=== PATIENT | female | born 1980 | race Caucasian/White ===

== ENCOUNTER → 2016-06-14 | Outpatient (REF) | payer MEDICARE, OTHER ==
[~2016-06-14] MED LIST: CALC500T49 PO; CLAR1TAB2 PO; CLEO300C2 PO; CYMB60CA3 PO; DRIS50002 PO; OXYC1TAB23 PO; OXYC20TA21 PO; VITA-112 PO; VITA500C10 PO
== END ==
LOC: M SFHCPLAZ 13:59
PROVIDERS: ATTEND Nurse Practitioner Family
DX: L03.115 Cellulitis of right lower limb (principal)
CPT/HCPCS: 87070; 87077; 87186; G0463

== ENCOUNTER → 2016-06-15 | Outpatient (REF) | payer MEDICARE, OTHER ==
[2016-06-15 14:54] LABS: BASO % 0.3 % (0.0-1.0); EOS # 0.2 K/mm3 (0.0-0.50); EOS % 1.8 % (0.0-3.0); LARGE UNSTAINED CELL # 0.2 K/mm3 (0.0-0.4); LARGE UNSTAINED CELL % 2.1 % (0.0-4.0); LYMPH # 2.5 K/mm3 (1.5-4.5); LYMPH % 26.4 % (24.0-44.0); MEAN CORPUSCULAR HEMOGLOBIN 31.8 pg (27.0-33.0); MEAN CORPUSCULAR HGB CONC 33.6 g/dl (32.0-36.5); MEAN CORPUSCULAR VOLUME 94.8 fl (80.0-96.0); MONO # 0.4 K/mm3 (0.0-0.8); NEUTROPHILS # 6.1 K/mm3 (1.8-7.7); NEUTROPHILS % 65.3 % (36.0-66.0); PLATELET COUNT, AUTOMATED 150 k/mm3 (150-450); RED CELL DISTRIBUTION WIDTH 12.5 % (11.5-14.5); WHITE BLOOD COUNT 9.3 K/mm3 (4.0-10.0)
[2016-06-15 14:57] LABS: ANION GAP 5 MEQ/L (8-16); BLOOD UREA NITROGEN 13 MG/DL (7-18); CARBON DIOXIDE LEVEL 29 MEQ/L (21-32); CHLORIDE LEVEL 106 MEQ/L (98-107); CREATININE FOR GFR 0.65 MG/DL (0.55-1.02); GLOMERULAR FILTRATION RATE > 60.0 (>60); GLUCOSE, FASTING 88 MG/DL (70-105); POTASSIUM SERUM 4.2 MEQ/L (3.5-5.1); SODIUM LEVEL 140 MEQ/L (136-145)
== END ==
LOC: M SFHCPLAZ 14:39
PROVIDERS: ATTEND Nurse Practitioner Family
DX: L03.115 Cellulitis of right lower limb (principal)

== ENCOUNTER → 2016-07-14 | Outpatient (REF) | payer MEDICARE, OTHER | LOC: M LABDRAWP 11:18 | PROVIDERS: ATTEND Nurse Practitioner Family | DX: R35.0 Frequency of micturition (principal) | CPT/HCPCS: 81002; 87086; G0463 ==

== ENCOUNTER → 2016-08-01 | Outpatient (REF) | payer MEDICARE, OTHER ==
[2016-08-01 15:46] LABS: BASO # 0.1 K/mm3 (0.0-0.2); BASO % 0.4 % (0.0-1.0); EOS # 0.1 K/mm3 (0.0-0.50); EOS % 0.9 % (0.0-3.0); LARGE UNSTAINED CELL # 0.3 K/mm3 (0.0-0.4); LARGE UNSTAINED CELL % 1.7 % (0.0-4.0); LYMPH # 5.6 K/mm3 (1.5-4.5); LYMPH % 34.1 % (24.0-44.0); MEAN CORPUSCULAR HEMOGLOBIN 32.2 pg (27.0-33.0); MEAN CORPUSCULAR HGB CONC 32.9 g/dl (32.0-36.5); MEAN CORPUSCULAR VOLUME 97.8 fl (80.0-96.0); MONO % 6.4 % (0.0-5.0); NEUTROPHILS # 8.8 K/mm3 (1.8-7.7); NEUTROPHILS % 56.5 % (36.0-66.0); PLATELET COUNT, AUTOMATED 213 k/mm3 (150-450); RED CELL DISTRIBUTION WIDTH 12.7 % (11.5-14.5)
[2016-08-01 15:48] LABS: WHITE BLOOD COUNT 15.5 K/mm3 (4.0-10.0)
[2016-08-01 16:09] LABS: ERYTHROCYTE SEDIMENTATION RATE 1 mm/hr (0-20)
[2016-08-01 16:44] LABS: ALBUMIN 3.7 GM/DL (3.2-5.2); ALBUMIN/GLOBULIN RATIO 1.48 (1.00-1.93); ALKALINE PHOSPHATASE 64 U/L (45-117); ALT/SGPT 24 U/L (12-78); ANION GAP 7 MEQ/L (8-16); AST/SGOT 9 U/L (15-37); BILIRUBIN,TOTAL 0.2 MG/DL (0.2-1.0); BLOOD UREA NITROGEN 11 MG/DL (7-18); CALCIUM LEVEL 8.5 MG/DL (8.5-10.1); CARBON DIOXIDE LEVEL 30 MEQ/L (21-32); CHLORIDE LEVEL 102 MEQ/L (98-107); CREATININE FOR GFR 0.65 MG/DL (0.55-1.02); FREE T4 0.95 NG/DL (0.76-1.46); GLOMERULAR FILTRATION RATE > 60.0 (>60); GLUCOSE, FASTING 73 MG/DL (70-105); POTASSIUM SERUM 3.7 MEQ/L (3.5-5.1); SODIUM LEVEL 139 MEQ/L (136-145); TOTAL PROTEIN 6.2 GM/DL (6.4-8.2)
[2016-08-01 18:41] LABS: REASON FOR REVIEW ABSOLUTE LYMPH >5.0
== END ==
LOC: M SFHCPLAZ 11:39
PROVIDERS: ATTEND Nurse Practitioner Family
DX: L29.9 Pruritus, unspecified (principal)
CPT/HCPCS: 36415; 80053; 84439; 84443; 85025; 85652; G0463

== ENCOUNTER → 2016-09-07 | Outpatient (REF) | payer MEDICARE, OTHER ==
[2016-09-07 14:06] LABS: BASO % 0.4 % (0.0-1.0); EOS # 0.2 K/mm3 (0.0-0.50); EOS % 2.1 % (0.0-3.0); LARGE UNSTAINED CELL # 0.2 K/mm3 (0.0-0.4); LARGE UNSTAINED CELL % 1.9 % (0.0-4.0); LYMPH # 2.4 K/mm3 (1.5-4.5); LYMPH % 27.2 % (24.0-44.0); MEAN CORPUSCULAR HEMOGLOBIN 33.3 pg (27.0-33.0); MEAN CORPUSCULAR HGB CONC 34.9 g/dl (32.0-36.5); MEAN CORPUSCULAR VOLUME 95.5 fl (80.0-96.0); MONO # 0.5 K/mm3 (0.0-0.8); MONO % 5.7 % (0.0-5.0); NEUTROPHILS # 5.6 K/mm3 (1.8-7.7); NEUTROPHILS % 62.6 % (36.0-66.0); PLATELET COUNT, AUTOMATED 173 k/mm3 (150-450); RED CELL DISTRIBUTION WIDTH 12.6 % (11.5-14.5); WHITE BLOOD COUNT 8.9 K/mm3 (4.0-10.0)
[2016-09-07 14:16] LABS: FREE T4 0.94 NG/DL (0.76-1.46)
== END ==
LOC: M SFHCPLAZ 11:15
PROVIDERS: ATTEND Nurse Practitioner Family
DX: D72.820 Lymphocytosis (symptomatic) (principal); E03.9 Hypothyroidism, unspecified

== ENCOUNTER → 2016-10-03 | Outpatient (REF) | payer MEDICARE, OTHER | LOC: M SFHCPLAZ 16:57 | PROVIDERS: ATTEND Nurse Practitioner Family | DX: R30.0 Dysuria (principal) | CPT/HCPCS: 87088; 87186; G0463 ==

== ENCOUNTER 2016-12-30 15:42 | Emergency (ER) | payer MEDICARE, OTHER ==
[~2016-12-30] VITALS: Ht 165.1 cm; Wt 67.3 kg
[~2016-12-30 15:42] MED LIST changes: -OXYC20TA21 PO; +OXYC20TA40 PO
[2016-12-30 16:44] LABS: CONTROL LINE UCG INT CTR LINE PRESENT
[2016-12-30] MEDS ORDERED: PYRI1TAB5 PO (17:21)
[2016-12-30] MEDS ORDERED: CIPR-249 PO (17:21)
[2016-12-30 17:23] VITALS: BP 140/71
== END 2016-12-30 17:32 | disposition home or self-care (01) ==
LOC: M ED 15:42
DX: N39.0 Urinary tract infection, site not specified (principal); Z79.899 Other long term (current) drug therapy; Z88.2 Allergy status to sulfonamides

== ENCOUNTER 2019-04-11 16:41 | Emergency (ER) | payer MEDICARE, OTHER ==
[~2019-04-11] VITALS: Ht 165.1 cm; Wt 71.2 kg
[~2019-04-11 16:41] MED LIST changes: +CIPR-249 PO; -DRIS50002 PO; +DRIS50003 PO; +PYRI1TAB5 PO
[2019-04-11 16:42] VITALS: BP 167/90
[2019-04-11] MEDS ORDERED: CLEO300C2 PO (17:18)
[2019-04-11] MEDS ORDERED: CLINDAMYCIN 150 MG CAP PO ONE (17:30)
== END 2019-04-11 17:35 | disposition home or self-care (01) ==
LOC: M ED 16:41
DX: M70.41 Prepatellar bursitis, right knee (principal); Z86.19 Personal history of other infectious and parasitic diseases; F33.9 Major depressive disorder, recurrent, unspecified; Z79.891 Long term (current) use of opiate analgesic; Z79.899 Other long term (current) drug therapy; Z88.2 Allergy status to sulfonamides; Z88.8 Allergy status to other drugs, medicaments and biological substances

== ENCOUNTER 2020-05-25 14:16 | Inpatient (IN) | payer MEDICARE, OTHER ==
[~2020-05-25] VITALS: Ht 165.1 cm; Wt 67.7 kg
--- OUTSIDE RECORDS SUMMARY | 2020-05-25 14:24 | CCD ---
Author Author [facility] Organization [facility] Address Unknown Phone Unavailable Support Name Relationship Address Phone TOPSWTN Next Of Kin [address] [place] [address] GREGBABITA Next Of Kin [address] [place] [address] DISABLED Next Of Kin [address] [place] [address] BABITA ANGELA Next Of Kin [address] [place] [address] Shar CHÁVEZ Next Of Kin [address] [place] [address] Re-disclosure Warning The records that you are about to access may contain information from federally-assisted alcohol or drug abuse programs. If such information is present, then the following federally mandated warning applies: This information has been disclosed to you from records protected by federal confidentiality rules (42 CFR part 2). The federal rules prohibit you from making any further disclosure of this information unless further disclosure is expressly permitted by the written consent of the person to whom it pertains or as otherwise permitted by 42 CFR part 2. A general authorization for the release of medical or other information is NOT sufficient for this purpose. The Federal rules restrict any use of the information to criminally investigate or prosecute any alcohol or drug abuse patient.The records that you are about to access may contain highly sensitive health information, the redisclosure of which is protected by Article 27-F of the [place] State Public Health law. If you continue you may have access to information: Regarding HIV / AIDS; Provided by facilities licensed or operated by the [facility] Office of Mental Health; or Provided by the [facility] Office for People With Developmental Disabilities. If such information is present, then the following [facility] mandated warning applies: This information has been disclosed to you from confidential records which are protected by state law. State law prohibits you from making any further disclosure of this information without the specific written consent of the person to whom it pertains, or as otherwise permitted by law. Any unauthorized further disclosure in violation of state law may result in a fine or penitentiary sentence or both. A general authorization for the release of medical or other information is NOT sufficient authorization for further disc losure. Family History Family Member Name Family Member Gender Family Member Status Date o f Status Description Data Source(s) Unknown Unknown Problem MEDENT ([facility]) father Unknown Male Problem MEDENT ([facility]) Unknown Female Problem MEDENT ([facility]) Unknown Unknown Medications Medication Brand Name Start Date Product Form Dose Route Admi nistrative Instructions Pharmacy Instructions Status Indications Reaction Description Data Source(s) 500 mg 05/23/2020 12:00:00 AM EST tablet 40 TAKE ONE TABLET BY MOUTH FOUR TIMES A DAY FOR 10 DAYS TAKE ONE TABLET BY MOUTH FOUR TIMES A DAY FOR 10 DAYS SOLD: 05/23/2020 [facility] 0.12 % 05/23/2020 12:00:00 AM EST mouthwash 473 RINSE WITH 15ML THREE TIMES A DAY FOR 7 DAYS ; SWISH, GARGLE AND AND SPIT OUT RINSE WITH 15ML THREE TIMES A DAY FOR 7 DAYS ; SWISH, GARGLE AND AND SPIT OUT SOLD: 05/23/2020 [facility] 4 mg 05/23/2020 12:00:00 AM EST capsule 14 TAKE ONE CAPSULE BY MOUTH EVERY DAY FOR 14 DAYS TAKE ONE CAPSULE BY MOUTH EVERY DAY FOR 14 DAYS SOLD: 05/23/2020 [facility] 500 mg 05/23/2020 12:00:00 AM EST tablet 20 TAKE ONE TABLET BY MOUTH EVERY 12 HOURS FOR 10 DAYS TAKE ONE TABLET BY MOUTH EVERY 12 HOURS FOR 10 DAYS SO LD: 05/23/2020 [facility] 20 mg 03/23/2020 12:00:00 AM EST tablet 10 TAKE TWO TABLETS BY MOUTH EVERY MORNING FOR 5 DAYS TAKE TWO TABLETS BY MOUTH EVERY MORNING FOR 5 DAYS GERARD [facility] 90 mcg/actuation 03/23/2020 12:00:00 AM EST HFA aerosol inha ler 8 INHALE 1-2 PUFFS BY MOUTH EVERY 4 HOURS NEEDED WHEEZING INHALE 1-2 PUFFS BY MOUTH EVERY 4 HOURS NEEDED WHEEZING SOLD: 03/23/2020 [facility] 500 mg 03/23/2020 12:00:00 AM EST tablet 5 TAKE ONE TABLET BY MOUTH EVERY DAY FOR 5 DAYS TAKE ONE TABLET BY MOUTH EVERY DAY FOR 5 DAYS SOLD: 03/23/2020 [facility] 1.1 % 02/11/2020 12:00:00 AM EDT cream 51 BRUSH TWO TIMES A DAY BRUSH TWO TIMES A DAY SOLD: 02/14/2020 [facility] 150 mg 07/09/2019 12:00:00 AM EST tablet 1 TAKE 1 TABLET BY MOUTH ONCE DAILY TAKE 1 TABLET BY MOUTH ONCE DAILY SOLD: 07/09/2019 [facility] 250 mg 07/09/2019 12:00:00 AM EST tablet 6 TAKE TWO TABLETS BY MOUTH AT ONCE ON THE FIRST DAY THEN TAKE ONE DAILY THEREAFTER TAKE TWO TABLETS BY MOUTH AT ONCE ON THE FIRST DAY THEN TAKE ONE DAILY THEREAFTER SOLD: 07/09/2019 [facility] 20 mg 07/09/2019 12:00:00 AM EST tablet 10 TAKE TWO TABLETS BY MOUTH EVERY MORNING FOR 5 DAYS TAKE TWO TABLETS BY MOUTH EVERY MORNING FOR 5 DAYS GERARD [facility] 300 mg 04/11/2019 12:00:00 AM EST capsule 30 TAKE ONE CAPSULE BY MOUTH THREE TIMES A DAY FOR 10 DAYS TAKE ONE CAPSULE BY MOUTH THREE TIMES A DAY FOR 10 DAY S SOLD: 04/12/2019 [facility] Insurance Providers Payer name Policy type / Coverage type Policy ID Covered constitution party ID Covered constitution party's relationship to martinez Policy Martinez Plan Information [facility] [id number] [facility] [id number] MEDICARE [id number] SP [id number] A FOR LIFE [id number] [facility] [id number] [facility] [id number] 2 [id number] MEDICARE [id number] SP [id number] A East Commercial [id number] Family Dependent [id number] Medicare Dme Supplies Medigap Part B [id number] Self [id number] Conjur Phy Serv (TFL) Medigap Part B [id number] Family Dep endent [id number] [place] Medigap Part B [id number] Self [id number] East Referrals Commercial [id number] Family Dependent [id number] Medicare Dme Supplies Medigap Part B [id number] Self [id number] [place] Phy Serv (TFL) Medigap Part B [id number] Family Dep endent [id number] [place] Medigap Part B [id number] Self [id number] East Referrals Commercial [id number] Family Dependent [id number] Medicare Dme Supplies Medigap Part B [id number] Self [id number] [place] Phy Serv (TFL) Medigap Part B [id number] Family Dep endent [id number] [place] Medigap Part B [id number] Self [id number] East Referrals Commercial [id number] Family Dependent [id number] East Commercial [id number] Family Dependent [id number] MEDICARE [id number] SP [id number] A FOR LIFE [id number] HU2 [id number] WPS For Life Medigap Part B Family Depende nt Medicare [facility] Medicare Primary Self FOR LIFE O [id number] P [id number] MEDICARE C [id number] S [id number] A [place]BA [place] O [id number] P [id number] FOR LIFE-O/P [id number] 01 [id number] N REGIONAL CLAIMS [place]-O/P [id number] 01 [id number] MEDICARE PART B-PHYSICIAN [id number] 18 [id number] FOR LIFE-PHYSICIAN [id number] 01 [id number] MEDICARE PART A-O/P [id number] 18 [id number] For Life Medigap Part B Self Medicare [facility] Medicare Primary Self [id number] A [id number] Results ID Date Data Source [id number] 03/23/2020 12:00:00 AM EST [facility] Name Value Range Interpretation Code Description Data Leatha rce(s) Supporting Document(s) SARS coronavirus 2 RNA [Presence] in Res piratory specimen by FELI with probe detection [facility] This lab was ordered by Lan Rios and reported by [facility]. Procedure
[2020-05-25] MEDS ORDERED: PENI500T PO (14:27)
[2020-05-25] MEDS ORDERED: PERI12LIQ SSP (14:27)
[2020-05-25] MEDS ORDERED: ALIG4CAP PO (14:27)
[2020-05-25] MEDS ORDERED: CLINDAMYCIN 900 MG in IV 1 EA IV ONE (15:15)
[2020-05-25] MEDS ORDERED: MORPHINE 2 MG/ML 1ML VIAL (J2270) IV ONE (15:15)
[2020-05-25] MEDS ORDERED: NS 1,000 ML IV ONE (15:15)
[2020-05-25] MEDS ORDERED: KETOROLAC 30 MG/ML 1ML VIAL IV ONE (15:15)
--- OUTSIDE RECORDS SUMMARY | 2020-05-25 15:38 | CCD ---
Author Author [facility] Organization [facility] Address Unknown Phone Unavailable Support Name Relationship Address Phone TOPSWTN Next Of Kin [address] [place] [address] GREGBABITA Next Of Kin [address] [place] [address] DISABLED Next Of Kin [address] [place] [address] BABITA ANGELA Next Of Kin [address] [place] [address] Shar CHÁVEZ Next Of Kin [address] [place] [address] Re-disclosure Warning The records that you are [...] is protected by Article 27-F of the [place] State Public Health law. If you continue you may have access to information: Regarding HIV / AIDS; Provided by facilities licensed or operated by the [facility] Office of Mental Health; or Provided by the [facility] Office for People With Developmental Disabilities. If such information is present, then the following [facility] mandated warning applies: This information has been [...] law may result in a fine or skilled nursing sentence or both. A general authorization for the release of medical or other information is NOT sufficient authorization for further disc losure. Family History Family Member Name Family Member Gender Family Member Status Date o f Status Description Data Source(s) Unknown Unknown Problem MEDENT ([facility]) father Unknown Male Problem MEDENT ([facility]) Unknown Female Problem MEDENT ([facility]) Unknown Unknown Medications [...] type / Coverage type Policy ID Covered alliance party ID Covered alliance party's relationship to martinez Policy Martinez Plan Information [facility] [id number] [facility] [id number] MEDICARE [id number] SP [id number] A FOR LIFE [id number] [facility] [id number] [facility] [id number] 2 [id number] MEDICARE [id number] SP [id number] A East Commercial [id number] Family Dependent [id number] Medicare Dme Supplies Medigap Part B [id number] Self [id number] Phy Serv (TFL) Medigap Part B [id number] Family Dep endent [id number] [place] Medigap Part B [id number] Self [id number] East Referrals Commercial [id number] Family Dependent [id number] Medicare Dme Supplies Medigap Part B [id number] Self [id number] [place] Phy Serv (TFL) Medigap Part B [id number] Family Dep endent [id number] [place] Medigap Part B [id number] Self [id number] East Referrals Commercial [id number] Family Dependent [id number] Medicare Dme Supplies Medigap Part B [id number] Self [id number] [place] Phy Serv (TFL) Medigap Part B [id number] Family Dep endent [id number] [place] Medigap Part B [id number] Self [id number] East Referrals Commercial [id number] Family Dependent [id number] East Commercial [id number] Family Dependent [id number] MEDICARE [id number] SP [id number] A FOR LIFE [id number] HU2 [id number] WPS For Life Medigap Part B Family Depende nt Medicare [facility] Medicare Primary Self FOR LIFE O [id number] P [id number] MEDICARE C [id number] S [id number] A PGBA [place] O [id number] P [id number] FOR LIFE-O/P [id number] 01 [id number] N REGIONAL CLAIMS [place]-O/P [id number] 01 [id number] MEDICARE PART B-PHYSICIAN [id number] 18 [id number] FOR LIFE-PHYSICIAN [id number] 01 [id number] MEDICARE PART A-O/P [id number] 18 [id number] For Life Medigap Part B Self Medicare [facility] Medicare Primary Self [id number] A [id number] Results ID Date Data Source [id number] 03/23/2020 12:00:00 AM EST [facility] Name Value Range Interpretation Code Description Data Leatha rce(s) Supporting Document(s) SARS coronavirus 2 RNA [Presence] in Res piratory specimen by FELI with probe detection [facility] This lab was ordered by Lan Rios and reported by [facility]. Procedure
[2020-05-25 15:45] LABS: HEMATOCRIT 45.3 % (36.0-47.0); MEAN CORPUSCULAR HEMOGLOBIN 31.4 pg (27.0-33.0); MEAN CORPUSCULAR HGB CONC 33.1 g/dl (32.0-36.5); PLATELET COUNT, AUTOMATED 130 10^3/uL (150-450); RED BLOOD COUNT 4.77 10^6/uL (4.00-5.40); WHITE BLOOD COUNT 13.1 10^3/uL (4.0-10.0)
[2020-05-25 16:24] LABS: ALBUMIN 3.3 GM/DL (3.2-5.2); ALT/SGPT 15 U/L (12-78); BILIRUBIN,DIRECT < 0.1 MG/DL (0.0-0.2); BILIRUBIN,TOTAL 0.5 MG/DL (0.2-1.0); BLOOD UREA NITROGEN 12 MG/DL (7-18); CALCIUM LEVEL 8.4 MG/DL (8.5-10.1); CARBON DIOXIDE LEVEL 29 MEQ/L (21-32); CHLORIDE LEVEL 108 MEQ/L (98-107); CREATININE FOR GFR 0.55 MG/DL (0.55-1.30); GLOMERULAR FILTRATION RATE > 60.0 (>58); GLUCOSE, FASTING 88 MG/DL (70-100); POTASSIUM SERUM 4.6 MEQ/L (3.5-5.1); SODIUM LEVEL 139 MEQ/L (136-145); TOTAL PROTEIN 6.3 GM/DL (6.4-8.2)
[2020-05-25] MEDS ORDERED: ISOVUE-370 76% 100ML VIAL As Ordered ONE (16:29)
--- NOTE | 2020-05-25 16:58 | REPVR ---
PROCEDURE INFORMATION: Exam: CT Neck With Contrast Exam date and time: 05/25/2020 4:45 PM Age: 39 years old Clinical indication: Other: Left facial neck swelling TECHNIQUE: Imaging protocol: Computed tomography images of the neck with intravenous contrast. Radiation optimization: All CT scans at this facility use at least one of these dose optimization techniques: automated exposure control; mA and/or kV adjustment per patient size (includes targeted exams where dose is matched to clinical indication); or iterative reconstruction. Contrast material: ISOVUE 370; Contrast volume: 75 ml; Contrast route: INTRAVENOUS (IV); COMPARISON: No relevant prior studies available. FINDINGS: Paranasal sinuses: Trace bilateral ethmoid and left maxillary sinus mucosal thickening. Trace dependent fluid versus mucosal disease in the right sphenoid sinus. Nasopharynx: Unremarkable. Dental: No large dental periapical lucencies. Mild periapical lucency adjacent to the root of the left mandibular 2nd molar tooth in keeping with endodontal disease. There is an impacted left maxillary wisdom tooth. Oropharynx: Unremarkable. No significant tonsillar enlargement. Hypopharynx: Unremarkable. Larynx: Unremarkable. Normal epiglottis. Retropharyngeal space: Unremarkable. Submandibular/Parotid glands: The left submandibular and sublingual glands are inflamed. No obstructing ductal stones identified. There is generalized edema in the left sublingual space/left floor of mouth. Marginally enhancing loculated fluid collection measures 1.9 x 1.1 x 1.7 cm. This is seen for example on axial image 44 series 201, sagittal image 49 series 203. This may represent an abscess or perhaps infected ranula. Thyroid: Normal. No enlarged or calcified nodules. Lymph nodes: Enlarged left level 1A and 1B lymph nodes, most likely reactive. Trachea: Visualized trachea is unremarkable. Lungs: No acute findings. The lung apices are emphysematous. Bones/joints: Reversal of the cervical lordosis. Mild disc height loss and spondylosis with uncovertebral arthropathy at C6-C7. No acute fractures Soft tissues: There is mild, generalized submental soft tissue edema. IMPRESSION: Findings consistent with left sublingual and submandibular sialadenitis. There is regional left floor of mouth edema. A 1.9 x 1.1 x 1.7 cm irregular/loculated fluid collection in the left sublingual space may represent an abscess or perhaps infected ranula. Electronically signed by: Calli Garcia On 05/25/2020 16:58:29 PM
[2020-05-25] MEDS ORDERED: NAPR-885 PO (17:28)
[2020-05-25] MEDS ORDERED: OXYC-404 PO (17:28)
[2020-05-25] MEDS ORDERED: DULO1CAP5 PO (17:28)
--- OUTSIDE RECORDS SUMMARY | 2020-05-25 17:59 | CCD ---
Author Author [facility] Organization [facility] Address Unknown Phone Unavailable Support Name Relationship Address Phone TOPSWTN Next Of Kin [address] [place] [address] GREGBABITA Next Of Kin [address] [place] [address] DISABLED Next Of Kin [address] [place] [address] BABITA ANGELA Next Of Kin [address] [place] [address] Shar CHÁVEZ Next Of Kin [address] [place] [address] Re-disclosure Warning The records that you are [...] is protected by Article 27-F of the [place] State Public Health law. If you continue you may have access to information: Regarding HIV / AIDS; Provided by facilities licensed or operated by the [facility] Office of Mental Health; or Provided by the [facility] Office for People With Developmental Disabilities. If such information is present, then the following [facility] mandated warning applies: This information has been [...] [facility], [facility]) father Unknown Male Problem MEDENT ([facility]) Unknown Female Problem MEDENT ([facility]) Unknown Unknown Medications [...] DAY FOR 10 DAY S SOLD: 04/12/2019 [facility] Insurance Providers Payer name Policy type / Coverage type Policy ID Covered libertarian ID Covered libertarian's relationship to martinez Policy Martinez Plan Information [facility] [id number] [facility] [id number] MEDICARE [id number] SP [id number] A FOR LIFE [id number] [facility] [id number] [facility] [id number] 2 [id number] MEDICARE [id number] SP [id number] A East Commercial [id number] Family Dependent [id number] Medicare Dme Supplies Medigap Part B [id number] Self [id number] [employer] Phy Serv (TFL) Medigap Part B [id number] Family Dep endent [id number] [place] Medigap Part B [id number] Self [id number] East Referrals Commercial [id number] Family Dependent [id number] Medicare Dme Supplies Medigap Part B [id number] Self [id number] [place] Phy Serv (TFL) Medigap Part B [id number] Family Dep endent [id number] [place] Medigap Part B [id number] Self [id number] East Referrals Commercial [id number] Family Dependent [id number] Medicare Dme Supplies Medigap Part B [id number] Self [id number] [place] Phy Serv (TFL) Medigap Part B [id number] Family Dep endent [id number] [place] Medigap Part B [id number] Self [id number] East Referrals Commercial [id number] Family Dependent [id number] East Commercial [id number] Family Dependent [id number] MEDICARE [id number] SP [id number] A FOR LIFE [id number] HU2 [id number] WPS For Life Medigap Part B Family Depende nt Medicare [facility] Medicare Primary Self FOR LIFE O [id number] P [id number] MEDICARE C [id number] S [id number] A PGBA [place] O [id number] P [id number] FOR LIFE-O/P [id number] 01 [id number] N REGIONAL CLAIMS [place]-O/P [id number] 01 [id number] MEDICARE PART B-PHYSICIAN [id number] FOR LIFE-PHYSICIAN [id number] 01 [id number] MEDICARE PART A-O/P [id number] 18 [id number] For Life Medigap Part B Self Medicare [facility] Medicare Primary Self [id number] A [id number] Results ID Date Data Source [id number] 03/23/2020 12:00:00 AM EST [facility] Name Value Range Interpretation Code Description Data Leatha rce(s) Supporting Document(s) SARS coronavirus 2 RNA [Presence] in Res piratory specimen by FELI with probe detection [facility] This lab was ordered by Lan Rios and reported by [facility]. Procedure
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
[2020-05-25] MEDS ORDERED: dexameTHASONE 20MG/5ML VIAL (J1100 PER 1MG) IV ONE (18:30)
[2020-05-25] MEDS: NS 1,000 ML IV SCH (20:29)
[2020-05-25] MEDS: DULoxetine 30 MG CAP (CYMBALTA) PO SCH (20:30)
[2020-05-25] MEDS: AMPICILLIN SOD/SULBACTAM SOD 3 GM in D5W MINI-BAG PLUS 100 ML IV SCH (20:54)
[2020-05-25 22:15] VITALS: BP 158/84
[2020-05-25] MEDS: oxyCODONE 20 MG CR TAB PO SCH (23:41)
[2020-05-26] VITALS: BP 152/80
[2020-05-26] MEDS ORDERED: CLINDAMYCIN 600 MG in IV 1 EA IV SCH ×2
[2020-05-26] MEDS: NS 1,000 ML IV SCH ×3 (02:01→15:47)
[2020-05-26] MEDS: AMPICILLIN SOD/SULBACTAM SOD 3 GM in D5W MINI-BAG PLUS 100 ML IV SCH ×4 (02:11→21:23)
[2020-05-26 04:00] VITALS: BP 138/70
[2020-05-26 05:27] LABS: HEMATOCRIT 42.2 % (36.0-47.0); MEAN CORPUSCULAR HEMOGLOBIN 31.4 pg (27.0-33.0); MEAN CORPUSCULAR HGB CONC 33.2 g/dl (32.0-36.5); MEAN CORPUSCULAR VOLUME 94.6 fl (80.0-96.0); PLATELET COUNT, AUTOMATED 141 10^3/uL (150-450); RED BLOOD COUNT 4.46 10^6/uL (4.00-5.40); WHITE BLOOD COUNT 10.3 10^3/uL (4.0-10.0)
[2020-05-26 05:51] LABS: BLOOD UREA NITROGEN 9 MG/DL (7-18); CALCIUM LEVEL 7.8 MG/DL (8.5-10.1); CARBON DIOXIDE LEVEL 25 MEQ/L (21-32); CHLORIDE LEVEL 111 MEQ/L (98-107); CREATININE FOR GFR 0.44 MG/DL (0.55-1.30); GLOMERULAR FILTRATION RATE > 60.0 (>58); GLUCOSE, FASTING 145 MG/DL (70-100); SODIUM LEVEL 141 MEQ/L (136-145)
[2020-05-26 07:34] VITALS: BP 150/78
[2020-05-26] MEDS: ENOXAPARIN 40MG/0.4ML SYRINGE (J1650 PER 10MG) SC SCH (08:06)
[2020-05-26] MEDS: DULoxetine 30 MG CAP (CYMBALTA) PO SCH ×2 (08:36→21:26)
[2020-05-26] MEDS ORDERED: INFLUENZA QUADRIVALENT PF VACCINE 0.5ML SYRINGE IM ONE (09:00)
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
[2020-05-26] MEDS: PERCOCET 5MG/325MG TAB PO PRN ×2 (11:31→17:36)
[2020-05-26 11:50] LABS: URINE PREG TEST NEGATIVE (NEGATIVE)
[2020-05-26] MEDS ORDERED: SCOPOLAMINE 1MG TRANSDERMAL PATCH As Ordered ONE (12:15)
[2020-05-26] MEDS ORDERED: SCOPOLAMINE 1MG TRANSDERMAL PATCH TOP ONE (12:30)
[2020-05-26] MEDS ORDERED: ROCURONIUM BROMIDE 50 MG/5 ML VIAL As Ordered ONE ×2 (12:37→13:17)
[2020-05-26] MEDS ORDERED: fentaNYL 250 MCG/5 ML INJECTION (J3010) As Ordered ONE (12:37)
[2020-05-26] MEDS ORDERED: MIDAZOLAM INJ 2MG/2ML VIAL (J2250 PER 1MG) As Ordered ONE (12:37)
[2020-05-26] MEDS ORDERED: propofoL 200 MG/20 ML VIAL As Ordered ONE ×2 (12:37→12:47)
[2020-05-26] MEDS ORDERED: ONDANSETRON 4MG/2ML VIAL As Ordered ONE ×2 (12:37→13:13)
[2020-05-26] MEDS ORDERED: dexameTHASONE 4 MG/ML 1ML VIAL (J1100 PER 1MG) As Ordered ONE (12:37)
[2020-05-26] MEDS ORDERED: LIDOCAINE 2% 100MG/5ML SDV (FOR ANES.) As Ordered ONE (12:37)
[2020-05-26] MEDS ORDERED: LIDOCAINE 2% W/ EPINEPHRINE 1.7 ML DENTAL INJ As Ordered ONE (12:40)
[2020-05-26] MEDS ORDERED: OXYMETAZOLINE 0.05% NASAL SPRAY (AFRIN) As Ordered ONE (12:43)
[2020-05-26] MEDS ORDERED: ACETAMINOPHEN 1000MG 100ML IV BTL (OFIRMEV) (J0131 PER 10MG) As Ordered ONE (13:13)
[2020-05-26] MEDS ORDERED: KETOROLAC 60MG 2ML VIAL As Ordered ONE (13:13)
[2020-05-26] MEDS ORDERED: METOCLOPRAMIDE INJ 10MG/2ML VIAL (J2765 PER 1) As Ordered ONE (13:13)
[2020-05-26] MEDS ORDERED: SUGAMMADEX SODIUM 500 MG/5 ML VIAL (BRIDION) As Ordered ONE (13:37)
[2020-05-26] MEDS ORDERED: HYDROmorphone HCL 2 MG/ML 1ML VIAL (J1170) As Ordered ONE (13:37)
[2020-05-26] MEDS ORDERED: HYDROMORPHONE HCL 0.5 MG/ 0.5 ML SYRINGE (J1170 PER 1) As Ordered ONE ×2 (13:57→14:26)
[2020-05-26] MEDS: HYDROMORPHONE HCL 0.5 MG/ 0.5 ML SYRINGE (J1170 PER 1) IV PRN ×4 (13:59→15:10)
[2020-05-26] MEDS ORDERED: UNASYN 3 GM VIAL As Ordered ONE (14:43)
[2020-05-26] MEDS ORDERED: ONDANSETRON 4MG/2ML VIAL IV PRN (14:45)
[2020-05-26] MEDS ORDERED: PERCOCET 5MG/325MG TAB PO PRN (14:45)
[2020-05-26] MEDS ORDERED: METOCLOPRAMIDE INJ 10MG/2ML VIAL (J2765 PER 1) IV PRN (14:45)
[2020-05-26] MEDS ORDERED: fentaNYL 100 MCG/2 ML INJECTION (J3010) IV PRN (14:45)
[2020-05-26] MEDS ORDERED: LR 1,000 ML IV SCH (14:45)
[2020-05-26 15:02] VITALS: BP 170/96
[2020-05-26] MEDS: ACETAMINOPHEN TAB 650MG DOSE (2X325MG) PO PRN ×2 (15:46→21:26)
[2020-05-26 16:00] VITALS: BP 180/80
[2020-05-26 20:00] VITALS: BP 136/78
[2020-05-26] MEDS: oxyCODONE 20 MG CR TAB PO SCH (21:26)
[2020-05-27 00:15] VITALS: BP 138/73
[2020-05-27] MEDS: NS 1,000 ML IV SCH (02:07)
[2020-05-27] MEDS: AMPICILLIN SOD/SULBACTAM SOD 3 GM in D5W MINI-BAG PLUS 100 ML IV SCH ×4 (02:08→20:11)
[2020-05-27 04:25] VITALS: BP 150/78
[2020-05-27 05:07] LABS: HEMATOCRIT 36.5 % (36.0-47.0); MEAN CORPUSCULAR HEMOGLOBIN 31.1 pg (27.0-33.0); MEAN CORPUSCULAR HGB CONC 32.3 g/dl (32.0-36.5); MEAN CORPUSCULAR VOLUME 96.1 fl (80.0-96.0); PLATELET COUNT, AUTOMATED 122 10^3/uL (150-450); WHITE BLOOD COUNT 11.1 10^3/uL (4.0-10.0)
[2020-05-27 05:11] LABS: HEMOGLOBIN 11.8 g/dl (12.0-15.5)
[2020-05-27 08:00] VITALS: BP 160/79
[2020-05-27] MEDS: DULoxetine 30 MG CAP (CYMBALTA) PO SCH ×2 (09:04→20:11)
[2020-05-27] MEDS: PERCOCET 5MG/325MG TAB PO PRN ×3 (09:05→18:31)
[2020-05-27] MEDS: ENOXAPARIN 40MG/0.4ML SYRINGE (J1650 PER 10MG) SC SCH (09:06)
[2020-05-27] MEDS: traMADol 50 MG TAB PO PRN (10:23)
[2020-05-27 12:00] VITALS: BP 141/71
--- NOTE | 2020-05-27 12:31 | IPNPDOC ---
Text Note Date of Service The patient was seen on 05/27/20. NOTE Antibiotic Day #2 Afebrile Tooth extracted Neck continues to be painful and firm. No dysphagia or breathing issues. PE Afebrile Neck is warm to touch The area of firm induation is still present and hard but smaller total volume of tissue I still dont detect fluctuance This could be headed for abscess formation but afterr needle aspiration attempts and no return yesterday, cant declare it. Recommend repeat CT later today or in early AM Will reexamine in AM and may return to OR for I and D. Continue IV ABX for now VS,Fishbone, I+O VS, Fishbone, I+O Laboratory Tests 05/27/20 04:58 Vital Signs Date Time Temp Pulse Resp B/P (MAP) Pulse Ox O2 Delivery O2 Flow Rate FiO2 05/27/20 12:00 97.8 107 18 141/71 (94) 96 Room Air I&O- Last 24 Hours up to 6 AM 05/27/20 06:00 Intake Total 2985 ml Output Total 500 ml Balance 2485 ml JOSE BRADSHAW MD May 27, 2020 12:31
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
[2020-05-27] MEDS ORDERED: ISOVUE-370 76% 100ML VIAL As Ordered ONE (13:13)
--- NOTE | 2020-05-27 14:05 | REPVR ---
PROCEDURE INFORMATION: Exam: CT Neck With Contrast Exam date and time: 05/27/2020 1:43 PM Age: 39 years old Clinical indication: Other: Abscess; Additional info: Neck abscess TECHNIQUE: Imaging protocol: Computed tomography images of the neck with intravenous contrast. Radiation optimization: All CT scans at this facility use at least one of these dose optimization techniques: automated exposure control; mA and/or kV adjustment per patient size (includes targeted exams where dose is matched to clinical indication); or iterative reconstruction. Contrast material: ISOVUE 370; Contrast volume: 75 ml; Contrast route: INTRAVENOUS (IV); COMPARISON: CT Neck with contrast 05/25/2020 4:37 PM FINDINGS: Nasopharynx: Unremarkable. Dental: There is an interval left posterior mandibular molar resection socket. Oropharynx: Unremarkable. No significant tonsillar enlargement. Hypopharynx: Unremarkable. Larynx: Unremarkable. Normal epiglottis. Retropharyngeal space: Unremarkable. Submandibular/Parotid glands: Persistent inflammatory change involves the left submandibular and sublingual glands. It is not clear whether this reflects primary sialoadenitis versus sequelae of odontogenic infection. There is diffuse edema of the sublingual space and floor of mouth asymmetric to the left, with loss of tissue planes. There is a persistent loculated fluid collection involving the floor of mouth measuring up to 2.1 x 2.5 by 1.5 cm. Thyroid: Normal. No enlarged or calcified nodules. Lymph nodes: Multilevel cervical lymph nodes predominating along the left submandibular space space are likely reactive in nature. Trachea: Visualized trachea is unremarkable. Lungs: Unremarkable as visualized. Bones/joints: Unremarkable. No acute fracture. Soft tissues: There is submental soft tissue induration. IMPRESSION: 1. Interval left mandibular resection. 2. Persistent inflammatory change involving the left sublingual and left submandibular glands, potentially reactive and related to underlying odontogenic infection versus primary sialoadenitis. Persistent extension into the floor of mouth, worry focal abscess is noted. Reactive lymphadenopathy. Electronically signed by: Susan Joseph On 05/27/2020 14:05:24 PM
--- NOTE | 2020-05-27 14:43 | RO ---
OPERATIVE NOTE DATE OF OPERATION: 05/26/2020 SURGEON: Alvaro Romeo D.M.D., MJeremy. CRUTCH MAKER: Yung Simmons M.D. PREOPERATIVE DIAGNOSIS: Necrotic and abscessed tooth #18 as well as cellulitis, left submandibular and submental spaces. POSTOPERATIVE DIAGNOSIS: Status post the above. PROCEDURE PERFORMED: Surgical extraction of tooth #18 as well as needle aspiration of left neck cellulitis/abscess. ANESTHESIA: General endotracheal anesthesia via oral ROSALIND. SPECIMEN: Teeth for gross only. INDICATIONS FOR SURGERY: Stefany is a pleasant, 39-year-old female who was referred to the emergency room by her dentist, reports a five day history of increasing neck swelling and pain stemming from tooth in the posterior left mandible. Her neck swelling has increased in the last 24 hours, now is accompanied by difficulty in swallowing. She does denies any difficulty opening her mouth and any difficulty breathing and fevers, does not report any fevers. Her clinical examination reveals that she has left neck swelling that is indurated and tender to palpation with no skin redness overlying it. The swelling is limited to the left neck and does not extend to the cheek. Her maximal intercisal opening is about 40 mm without assistance. Her floor of the mouth is nonelevated. There is no parapharyngeal swelling and tooth #18 is grossly decayed with no infection noted intraorally. Her white count on admission is 13,000. She did have a CT scan with contrast that showed potential sialadenitis versus infected ranula versus a dental abscess with possible fluid collection, 1.7 x 1.9 cm in the left submandibular space area. She was admitted to the hospitalist, was placed on Unasyn 3 gm IV every six hours and we planned to take the patient to the operating room the next day which is May 26, myself in conjunction with Dr. Simmons, the ear, nose and throat doctor. All the risks, benefits and alternatives were explained to the patient. A complete history and physical was performed and is in the patient's chart and all the questions were addressed. DESCRIPTION OF PROCEDURE: The patient was taken to the preop holding area. Any last minute questions were addressed. She was then taken back to the operating room. She was laid supine on the operating room table. Ulnar nerve protectors were placed. Noninvasive cardiac monitors were applied. At that point, the patient underwent general anesthesia and was intubated with an oral ROSALIND. She was then prepped and draped in the usual sterile fashion. A timeout procedure was performed to identify the patient, the procedure and any other precautions. A moist throat pack was inserted in the patient's oropharynx followed by the administration of three carpules of 2% lidocaine with 1:100,000 epinephrine as local infiltration and blocks for tooth #18. At this point, Dr. Simmons used an 18 gauge needle to try to localize any abscess formation in her neck by aspirating. However, there was no aspirate noted. After four attempts, he decided that there was no other need for intervention from the next standpoint. At this point, I took over the procedure where I made a full-thickness flap, site #18 with a hockey stick buckle extension. A small amount of buccal bone was removed down to the furcation of the tooth. At this point, the crown fractured upon luxation with forceps. The roots were then divided and removed individually. The socket was copiously irrigated and curetted. The lingual cortex was noted to be intact. The inferior alveolar nerve was not noted. Once the socket was copiously irrigated, the flap was then closed with 3-0 Chromic sutures. At this point, the oral cavity was irrigated and suctioned. The throat pack was removed. The patient was awakened from general anesthesia and taken back to the PACU. COMPLICATIONS: None to mention at time of surgery. ESTIMATED BLOOD LOSS: About 10 mL DRAINS: There were no drains placed.
[2020-05-27 16:00] VITALS: BP 167/79
[2020-05-27 20:00] VITALS: BP 157/73
[2020-05-27] MEDS: oxyCODONE 20 MG CR TAB PO SCH (20:11)
[2020-05-27] MEDS ORDERED: LABETALOL 100MG/20ML VIAL IV ONE (23:45)
[2020-05-28] VITALS (12 sets, daily range): BP systolic 114–190; BP diastolic 64–100
[2020-05-28] MEDS: AMPICILLIN SOD/SULBACTAM SOD 3 GM in D5W MINI-BAG PLUS 100 ML IV SCH ×4 (00:50→19:55)
[2020-05-28 05:30] LABS: BASO % 0.3 % (0.0-1.0); EOS # 0.1 10^3/uL (0.0-0.5); HEMATOCRIT 37.7 % (36.0-47.0); LYMPH % 23.5 % (24.0-44.0); MEAN CORPUSCULAR HEMOGLOBIN 30.6 pg (27.0-33.0); MEAN CORPUSCULAR HGB CONC 31.8 g/dl (32.0-36.5); MEAN CORPUSCULAR VOLUME 96.2 fl (80.0-96.0); MONO # 0.7 10^3/uL (0.0-0.8); MONO % 7.5 % (0.0-5.0); NEUTROPHILS # 5.8 10^3/uL (1.5-8.5); NEUTROPHILS % 67.1 % (36.0-66.0); PLATELET COUNT, AUTOMATED 128 10^3/uL (150-450); RED BLOOD COUNT 3.92 10^6/uL (4.00-5.40); WHITE BLOOD COUNT 8.6 10^3/uL (4.0-10.0)
[2020-05-28 06:01] LABS: BLOOD UREA NITROGEN 8 MG/DL (7-18); CALCIUM LEVEL 7.8 MG/DL (8.5-10.1); CARBON DIOXIDE LEVEL 29 MEQ/L (21-32); CHLORIDE LEVEL 109 MEQ/L (98-107); CREATININE FOR GFR 0.46 MG/DL (0.55-1.30); GLOMERULAR FILTRATION RATE > 60.0 (>58); GLUCOSE, FASTING 87 MG/DL (70-100); MAGNESIUM LEVEL 1.9 MG/DL (1.8-2.4); POTASSIUM SERUM 3.3 MEQ/L (3.5-5.1); SODIUM LEVEL 141 MEQ/L (136-145)
[2020-05-28] MEDS: PERCOCET 5MG/325MG TAB PO PRN ×3 (06:47→14:35)
[2020-05-28] MEDS ORDERED: POTASSIUM CHLORIDE 10 MEQ SR TABLET PO ONE (07:30)
[2020-05-28] MEDS: DULoxetine 30 MG CAP (CYMBALTA) PO SCH ×2 (10:27→20:00)
[2020-05-28] MEDS: ENOXAPARIN 40MG/0.4ML SYRINGE (J1650 PER 10MG) SC SCH (10:29)
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
[2020-05-28] MEDS ORDERED: LIDOCAINE W/EPINEPHRINE 1% 20ML VIAL As Ordered ONE (13:49)
[2020-05-28] MEDS ORDERED: BACITRACIN OINTMENT 30GM TUBE As Ordered ONE (13:49)
[2020-05-28] MEDS ORDERED: dexameTHASONE 4 MG/ML 1ML VIAL (J1100 PER 1MG) IV ONE (15:00)
[2020-05-28] MEDS ORDERED: LIDOCAINE 2% 100MG/5ML SDV (FOR ANES.) As Ordered ONE (16:02)
[2020-05-28] MEDS ORDERED: ONDANSETRON 4MG/2ML VIAL As Ordered ONE (16:02)
[2020-05-28] MEDS ORDERED: MIDAZOLAM INJ 2MG/2ML VIAL (J2250 PER 1MG) As Ordered ONE (16:02)
[2020-05-28] MEDS ORDERED: ROCURONIUM BROMIDE 50 MG/5 ML VIAL As Ordered ONE (16:02)
[2020-05-28] MEDS ORDERED: SUGAMMADEX SODIUM 500 MG/5 ML VIAL (BRIDION) As Ordered ONE (16:02)
[2020-05-28] MEDS ORDERED: dexameTHASONE 4 MG/ML 1ML VIAL (J1100 PER 1MG) As Ordered ONE (16:02)
[2020-05-28] MEDS ORDERED: propofoL 200 MG/20 ML VIAL As Ordered ONE (16:02)
[2020-05-28] MEDS ORDERED: fentaNYL 100 MCG/2 ML INJECTION (J3010) As Ordered ONE ×2 (16:02→17:33)
[2020-05-28] MEDS ORDERED: KETOROLAC 60MG 2ML VIAL As Ordered ONE (16:03)
[2020-05-28] MEDS ORDERED: SCOPOLAMINE 1MG TRANSDERMAL PATCH As Ordered ONE (16:20)
[2020-05-28] MEDS ORDERED: LIDOCAINE 2% W/ EPINEPHRINE 1.7 ML DENTAL INJ As Ordered ONE (16:25)
[2020-05-28] MEDS ORDERED: SCOPOLAMINE 1MG TRANSDERMAL PATCH TOP SCH (16:30)
[2020-05-28] MEDS ORDERED: HYDROmorphone HCL 2 MG/ML 1ML VIAL (J1170) As Ordered ONE (16:53)
[2020-05-28] MEDS ORDERED: LABETALOL 100MG/20ML VIAL As Ordered ONE (17:18)
[2020-05-28] MEDS: LABETALOL 100MG/20ML VIAL IV PRN ×4 (17:28→18:16)
[2020-05-28] MEDS ORDERED: LR 1,000 ML IV SCH (17:30)
[2020-05-28] MEDS ORDERED: oxyCODONE 5MG TAB PO PRN (17:30)
[2020-05-28] MEDS ORDERED: METOCLOPRAMIDE INJ 10MG/2ML VIAL (J2765 PER 1) IV PRN (17:30)
[2020-05-28] MEDS ORDERED: HYDROMORPHONE HCL 0.5 MG/ 0.5 ML SYRINGE (J1170 PER 1) IV PRN (17:30)
[2020-05-28] MEDS ORDERED: ONDANSETRON 4MG/2ML VIAL IV PRN (17:30)
[2020-05-28] MEDS: fentaNYL 100 MCG/2 ML INJECTION (J3010) IV PRN ×4 (17:36→17:53)
[2020-05-28] MEDS ORDERED: oxyCODONE 5MG TAB As Ordered ONE (17:58)
[2020-05-28] MEDS: oxyCODONE 20 MG CR TAB PO SCH (20:00)
[2020-05-29] MEDS: AMPICILLIN SOD/SULBACTAM SOD 3 GM in D5W MINI-BAG PLUS 100 ML IV SCH ×4 (01:03→20:14)
[2020-05-29] MEDS: traMADol 50 MG TAB PO PRN ×2 (01:39→09:48)
[2020-05-29 04:00] VITALS: BP 138/76
[2020-05-29] MEDS: PERCOCET 5MG/325MG TAB PO PRN ×3 (04:29→16:05)
[2020-05-29 05:33] LABS: BASO % 0.1 % (0.0-1.0); HEMATOCRIT 39.4 % (36.0-47.0); HEMOGLOBIN 13.2 g/dl (12.0-15.5); LYMPH # 1.1 10^3/uL (1.5-5.0); LYMPH % 13.5 % (24.0-44.0); MEAN CORPUSCULAR HEMOGLOBIN 31.5 pg (27.0-33.0); MEAN CORPUSCULAR HGB CONC 33.5 g/dl (32.0-36.5); MONO # 0.5 10^3/uL (0.0-0.8); MONO % 6.2 % (0.0-5.0); NEUTROPHILS # 6.7 10^3/uL (1.5-8.5); NEUTROPHILS % 79.7 % (36.0-66.0); PLATELET COUNT, AUTOMATED 165 10^3/uL (150-450); RED BLOOD COUNT 4.19 10^6/uL (4.00-5.40); WHITE BLOOD COUNT 8.4 10^3/uL (4.0-10.0)
[2020-05-29 06:02] LABS: BLOOD UREA NITROGEN 5 MG/DL (7-18); CALCIUM LEVEL 7.9 MG/DL (8.5-10.1); CARBON DIOXIDE LEVEL 27 MEQ/L (21-32); CHLORIDE LEVEL 104 MEQ/L (98-107); CREATININE FOR GFR 0.41 MG/DL (0.55-1.30); GLOMERULAR FILTRATION RATE > 60.0 (>58); GLUCOSE, FASTING 114 MG/DL (70-100); POTASSIUM SERUM 3.7 MEQ/L (3.5-5.1); SODIUM LEVEL 138 MEQ/L (136-145)
[2020-05-29 08:00] VITALS: BP 170/90
[2020-05-29] MEDS: DULoxetine 30 MG CAP (CYMBALTA) PO SCH ×2 (08:24→20:14)
[2020-05-29] MEDS: ENOXAPARIN 40MG/0.4ML SYRINGE (J1650 PER 10MG) SC SCH (08:24)
--- NOTE | 2020-05-29 08:41 | RO ---
OPERATIVE NOTE DATE OF OPERATION: 05/28/2020 SURGEONS: 1. Alvaro Romeo D.M.D., MD 2. JOSE BRADSHAW MD PREOPERATIVE DIAGNOSIS: Left neck abscess. POSTOPERATIVE DIAGNOSIS: Status post the above. PROCEDURE PERFORMED: Incision and drainage extraorally of the left neck abscess. ASSISTANTS: None. ANESTHESIA USED: General endotracheal anesthesia via oral ROSALIND. SPECIMEN: Aerobes, anaerobes, culture and sensitivity, and gram stains were sent out. INDICATIONS FOR SURGERY: Nonresolution of left neck swelling and cellulitis turning into abscess formation. DESCRIPTION OF PROCEDURE: The patient was taken from the pre-operative holding area into the operating room. She was laid supine on the operating room table. Ulnar nerve protectors were placed. Noninvasive cardiac monitors were applied. At that point, the patient underwent general anesthesia and was intubated with an oral ROSALIND. She was prepped and draped in the usual sterile fashion. A timeout procedure was performed to identify the patient, the procedure, and any other precautions. She was not due for any preoperative antibiotics, as she has been getting those every 6 hours on her main floor. At this point, local third of a carpule of 2% Lidocaine with 1:100,000 epinephrine was administered in the left neck skin area. A 15-mm incision in the left submandibular area through skin and subcutaneous fat was performed, and then blunt dissection with a hemostat was performed to perforate the platysma muscle and into the submandibular area. At this point, an abundant amount of purulent material was noted, where cultures were obtained. Further blunt dissection in the submandibular area as well as sublingual area, followed by blunt dissection with a finger to release any loculated areas. Further necrotic and purulent material was encountered and evacuated. At this point, once the submandibular and sublingual areas were widely opened up with blunt dissection, copious irrigation was performed with saline. A quarter-inch [place] was inserted into the submandibular and sublingual space and was retained with 3-0 silk suture at the skin. At this point, a neck dressing was placed. The patient was awakened from general anesthesia and taken back to the PACU. COMPLICATIONS: None mentioned at the time of the surgery. ESTIMATED BLOOD LOSS: 20 mL. DRAINS: There was one drain placed, quarter-inch [place] into the left submandibular and sublingual space.
[2020-05-29 12:00] VITALS: BP 164/78
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
[2020-05-29 16:00] VITALS: BP 150/76
[2020-05-29 20:00] VITALS: BP 144/78
[2020-05-29] MEDS: oxyCODONE 20 MG CR TAB PO SCH (20:14)
[2020-05-30] VITALS (7 sets, daily range): BP systolic 132–168; BP diastolic 72–88
[2020-05-30] MEDS: PERCOCET 5MG/325MG TAB PO PRN ×3 (00:55→12:20)
[2020-05-30] MEDS: AMPICILLIN SOD/SULBACTAM SOD 3 GM in D5W MINI-BAG PLUS 100 ML IV SCH ×4 (01:00→20:21)
[2020-05-30 06:14] LABS: BASO % 0.5 % (0.0-1.0); EOS # 0.1 10^3/uL (0.0-0.5); HEMOGLOBIN 13.2 g/dl (12.0-15.5); LYMPH # 2.4 10^3/uL (1.5-5.0); LYMPH % 30.4 % (24.0-44.0); MEAN CORPUSCULAR HEMOGLOBIN 31.4 pg (27.0-33.0); MEAN CORPUSCULAR HGB CONC 31.4 g/dl (32.0-36.5); MONO # 0.8 10^3/uL (0.0-0.8); MONO % 9.8 % (0.0-5.0); NEUTROPHILS # 4.5 10^3/uL (1.5-8.5); NEUTROPHILS % 56.9 % (36.0-66.0); PLATELET COUNT, AUTOMATED 150 10^3/uL (150-450); WHITE BLOOD COUNT 7.8 10^3/uL (4.0-10.0)
[2020-05-30 06:36] LABS: BLOOD UREA NITROGEN 8 MG/DL (7-18); CALCIUM LEVEL 8.3 MG/DL (8.5-10.1); CARBON DIOXIDE LEVEL 30 MEQ/L (21-32); CHLORIDE LEVEL 105 MEQ/L (98-107); CREATININE FOR GFR 0.49 MG/DL (0.55-1.30); GLOMERULAR FILTRATION RATE > 60.0 (>58); GLUCOSE, FASTING 87 MG/DL (70-100); POTASSIUM SERUM 3.6 MEQ/L (3.5-5.1); SODIUM LEVEL 140 MEQ/L (136-145)
[2020-05-30] MEDS: DULoxetine 30 MG CAP (CYMBALTA) PO SCH ×2 (08:24→20:20)
[2020-05-30] MEDS: ENOXAPARIN 40MG/0.4ML SYRINGE (J1650 PER 10MG) SC SCH (08:26)
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
[2020-05-30] MEDS: oxyCODONE 20 MG CR TAB PO SCH (20:20)
[2020-05-31] VITALS: BP 138/82
[2020-05-31] MEDS: traMADol 50 MG TAB PO PRN (00:33)
[2020-05-31] MEDS: AMPICILLIN SOD/SULBACTAM SOD 3 GM in D5W MINI-BAG PLUS 100 ML IV SCH ×2 (02:38→08:15)
[2020-05-31 04:50] LABS: BASO # 0.1 10^3/uL (0.0-0.2); BASO % 0.7 % (0.0-1.0); EOS # 0.3 10^3/uL (0.0-0.5); EOS % 2.9 % (0.0-3.0); HEMATOCRIT 41.2 % (36.0-47.0); HEMOGLOBIN 13.5 g/dl (12.0-15.5); LYMPH # 2.2 10^3/uL (1.5-5.0); LYMPH % 25.4 % (24.0-44.0); MEAN CORPUSCULAR HEMOGLOBIN 31.1 pg (27.0-33.0); MEAN CORPUSCULAR HGB CONC 32.8 g/dl (32.0-36.5); MEAN CORPUSCULAR VOLUME 94.9 fl (80.0-96.0); MONO # 0.9 10^3/uL (0.0-0.8); NEUTROPHILS % 58.7 % (36.0-66.0); PLATELET COUNT, AUTOMATED 187 10^3/uL (150-450); RED BLOOD COUNT 4.34 10^6/uL (4.00-5.40); WHITE BLOOD COUNT 8.6 10^3/uL (4.0-10.0)
[2020-05-31 05:19] LABS: BLOOD UREA NITROGEN 7 MG/DL (7-18); CALCIUM LEVEL 8.7 MG/DL (8.5-10.1); CARBON DIOXIDE LEVEL 30 MEQ/L (21-32); CHLORIDE LEVEL 103 MEQ/L (98-107); CREATININE FOR GFR 0.59 MG/DL (0.55-1.30); GLOMERULAR FILTRATION RATE > 60.0 (>58); GLUCOSE, FASTING 86 MG/DL (70-100); MAGNESIUM LEVEL 2.1 MG/DL (1.8-2.4); POTASSIUM SERUM 3.7 MEQ/L (3.5-5.1); SODIUM LEVEL 140 MEQ/L (136-145)
[2020-05-31 08:00] VITALS: BP 162/90
[2020-05-31] MEDS: PERCOCET 5MG/325MG TAB PO PRN (08:14)
[2020-05-31] MEDS: ENOXAPARIN 40MG/0.4ML SYRINGE (J1650 PER 10MG) SC SCH (08:15)
[2020-05-31] MEDS: DULoxetine 30 MG CAP (CYMBALTA) PO SCH (08:15)
[2020-05-31] MEDS ORDERED: lisinopriL 40 MG TAB PO SCH (09:00)
[2020-05-31] MEDS ORDERED: AUGM875T28 PO ×2 (09:46→10:05)
[2020-05-31] MEDS ORDERED: LISI40TA4 PO (09:46)
[2020-05-31] MEDS ORDERED: ACET1TAB55 PO (09:46)
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
== END 2020-05-31 13:15 | disposition home or self-care (01) | DRG 854 ==
LOC: M ED 14:16 → M ED INP 17:48 → EEVIPCON 17:48 → M PCU 22:20
PROVIDERS: ADMIT Internal Medicine; ATTEND Internal Medicine
PROC: 0CTX0Z0 Resection of Lower Tooth, Single, Open Approach (ICD-10-PCS; 2020-05-26)
PROC: 0W960ZZ Drainage of Neck, Open Approach (ICD-10-PCS; principal; 2020-05-26 13:45)
PROC: 0W960ZZ Drainage of Neck, Open Approach (ICD-10-PCS; 2020-05-28)
DX: A41.9 Sepsis, unspecified organism (principal); K12.2 Cellulitis and abscess of mouth; K11.21 Acute sialoadenitis; Z79.899 Other long term (current) drug therapy; Z88.2 Allergy status to sulfonamides; Z88.8 Allergy status to other drugs, medicaments and biological substances

== ENCOUNTER 2020-07-28 13:32 | Inpatient (IN) | payer MEDICARE, OTHER ==
[~2020-07-28] VITALS: Ht 165.1 cm; Wt 69.6 kg
[~2020-07-28 13:32] MED LIST changes: +ACET1TAB55 PO; +ALIG4CAP PO; +AUGM875T28 PO; +DULO1CAP5 PO; +LISI40TA4 PO; +NAPR-885 PO; +OXYC-404 PO; +PENI500T PO; +PERI12LIQ SSP
[2020-07-28] MEDS ORDERED: OXYC10TA3 PO (13:43)
[2020-07-28] MEDS ORDERED: CHAN1PAK11 PO (13:43)
[2020-07-28] MEDS ORDERED: NS 1,000 ML IV ONE (14:25)
[2020-07-28] MEDS ORDERED: methocarbamoL 750 MG TAB PO ONE (14:25)
[2020-07-28] MEDS ORDERED: KETOROLAC 30 MG/ML 1ML VIAL IV ONE (14:25)
--- NOTE | 2020-07-28 15:20 | REP ---
INDICATION: abscess left foot 5th toe COMPARISON: None. TECHNIQUE: There are four views. FINDINGS: There is diffuse soft tissue edema of the entire foot and there is soft tissue edema of the 5th digit. There is almost complete EE were 0 renteria of the 5th digit proximal and middle phalanges. This could be from neoplasm or infection. There is diffuse demineralization. There are no other calcifications or foreign bodies. No fracture or dislocation. IMPRESSION: Complete erosion of the proximal and middle phalanges of the 5th digit accompanied by diffuse edema of the 5th digit and diffuse edema of the foot. This could be from infection, abscess or neoplasm. <Electronically signed by Agustin Moura > 07/28/20 [id number]
[2020-07-28 15:25] LABS: BASO % 0.3 % (0.0-1.0); EOS # 0.2 10^3/uL (0.0-0.5); EOS % 1.7 % (0.0-3.0); HEMATOCRIT 44.1 % (36.0-47.0); HEMOGLOBIN 15.3 g/dl (12.0-15.5); LYMPH # 1.9 10^3/uL (1.5-5.0); LYMPH % 15.9 % (24.0-44.0); MEAN CORPUSCULAR HEMOGLOBIN 32.2 pg (27.0-33.0); MEAN CORPUSCULAR HGB CONC 34.7 g/dl (32.0-36.5); MEAN CORPUSCULAR VOLUME 92.8 fl (80.0-96.0); MONO # 0.8 10^3/uL (0.0-0.8); MONO % 6.6 % (2.0-8.0); NEUTROPHILS # 8.9 10^3/uL (1.5-8.5); NEUTROPHILS % 75.1 % (36.0-66.0); PLATELET COUNT, AUTOMATED 131 10^3/uL (150-450); RED BLOOD COUNT 4.75 10^6/uL (4.00-5.40); WHITE BLOOD COUNT 11.9 10^3/uL (4.0-10.0)
[2020-07-28] MEDS ORDERED: MORPHINE 4 MG/ML 1ML VIAL/SYRINGE (J2270) IV ONE (15:30)
[2020-07-28 15:42] LABS: BLOOD UREA NITROGEN 9 MG/DL (7-18); CALCIUM LEVEL 8.4 MG/DL (8.5-10.1); CARBON DIOXIDE LEVEL 24 MEQ/L (21-32); CHLORIDE LEVEL 108 MEQ/L (98-107); CREATININE FOR GFR 0.76 MG/DL (0.55-1.30); GLOMERULAR FILTRATION RATE > 60.0 (>58); GLUCOSE, FASTING 96 MG/DL (70-100); POTASSIUM SERUM 5.6 MEQ/L (3.5-5.1); SODIUM LEVEL 136 MEQ/L (136-145)
[2020-07-28] MEDS ORDERED: AMPICILLIN SOD/SULBACTAM SOD 3 GM in D5W MINI-BAG PLUS 100 ML IV ONE (16:05)
[2020-07-28 17:02] LABS: ERYTHROCYTE SEDIMENTATION RATE 10 mm/hr (0-20)
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
[2020-07-28] MEDS ORDERED: MAALOX 30 ML SUSP *UDC PO PRN (17:05)
[2020-07-28] MEDS ORDERED: MOM 30ML SUSPENSION UDC PO PRN (17:05)
[2020-07-28] MEDS ORDERED: ACETAMINOPHEN TAB 650MG DOSE (2X325MG) PO PRN (17:05)
[2020-07-28] MEDS ORDERED: LISI40TA4 PO (17:25)
[2020-07-28 18:13] LABS: RSV AMPLIFICATION NEGATIVE (NEGATIVE)
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
[2020-07-28] MEDS ORDERED: PROHANCE 279.3MG/ML 15ML VIAL As Ordered ONE (19:50)
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
[2020-07-28] MEDS: DULoxetine 30 MG CAP (CYMBALTA) PO SCH (21:28)
[2020-07-28] MEDS: DOCUSATE SODIUM 100MG CAPSULE PO SCH (21:28)
[2020-07-28] MEDS: NORCO, ANEXSIA 5/325MG TABLET (HYDROcodone/ACETAMINOPHEN) PO PRN (21:29)
[2020-07-28] MEDS: NS 1,000 ML IV SCH (21:50)
[2020-07-28 22:00] VITALS: BP 141/88
[2020-07-28] MEDS: AMPICILLIN SOD/SULBACTAM SOD 3 GM in D5W MINI-BAG PLUS 100 ML IV SCH (23:01)
[2020-07-29] VITALS (10 sets, daily range): BP systolic 124–149; BP diastolic 70–98
[2020-07-29] MEDS: MORPHINE 4 MG/ML 1ML VIAL/SYRINGE (J2270) IV PRN ×2 (00:12→09:39)
--- NOTE | 2020-07-29 01:12 | ECGEPIP ---
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
[2020-07-29] MEDS: NS 1,000 ML IV SCH ×3 (03:59→22:15)
[2020-07-29] MEDS: AMPICILLIN SOD/SULBACTAM SOD 3 GM in D5W MINI-BAG PLUS 100 ML IV SCH ×4 (03:59→22:15)
[2020-07-29 06:53] LABS: BASO % 0.7 % (0.0-1.0); EOS % 3.5 % (0.0-3.0); HEMATOCRIT 40.6 % (36.0-47.0); HEMOGLOBIN 13.8 g/dl (12.0-15.5); LYMPH # 1.3 10^3/uL (1.5-5.0); LYMPH % 21.2 % (24.0-44.0); MEAN CORPUSCULAR HEMOGLOBIN 31.7 pg (27.0-33.0); MEAN CORPUSCULAR VOLUME 93.3 fl (80.0-96.0); MONO # 0.6 10^3/uL (0.0-0.8); MONO % 10.3 % (2.0-8.0); NEUTROPHILS # 3.8 10^3/uL (1.5-8.5); NEUTROPHILS % 63.8 % (36.0-66.0); PLATELET COUNT, AUTOMATED 115 10^3/uL (150-450); RED BLOOD COUNT 4.35 10^6/uL (4.00-5.40); WHITE BLOOD COUNT 5.9 10^3/uL (4.0-10.0)
[2020-07-29 06:54] LABS: EOS # 0.2 10^3/uL (0.0-0.5)
[2020-07-29] MEDS ORDERED: SOD POLYSTYRENE SULFONATE SUSP 15 GM/60 ML UD PO ONE (07:15)
[2020-07-29 07:22] LABS: C REACTIVE PROTEIN QUANTITATIV 2.22 MG/DL (0.00-0.30); MAGNESIUM LEVEL 2.1 MG/DL (1.8-2.4)
--- NOTE | 2020-07-29 07:23 | IPNPDOC ---
Subjective Date Seen The patient was seen on 07/29/20. VS, I&O, 24H, [facility] Vital Signs/I&O Vital Signs Date Time Temp Pulse Resp B/P (MAP) Pulse Ox O2 Delivery O2 Flow Rate FiO2 07/29/20 06:00 97.7 85 20 124/70 (88) 96 Room Air I&O- Last 24 Hours up to 6 AM 07/29/20 06:00 Intake Total 1100 ml Balance 1100 ml Laboratory Data 24H LABS Laboratory Tests 2 07/28/20 15:01: Immature Granulocyte % (Auto) 0.4, Neutrophils (%) (Auto) 75.1H, Lymphocytes (%) (Auto) 15.9L, Monocytes (%) (Auto) 6.6, Eosinophils (%) (Auto) 1.7, Basophils (%) (Auto) 0.3, Neutrophils # (Auto) 8.9H, Lymphocytes # (Auto) 1.9, Monocytes # (Auto) 0.8, Eosinophils # (Auto) 0.2, Basophils # (Auto) 0.0, Nucleated Red Blood Cells % (auto) 0.0, Erythrocyte Sedimentation Rate 10, Anion Gap 4L, Glomerular Filtration Rate > 60.0, Lactic Acid Level 1.1, Calcium Level 8.4L 07/28/20 17:07: Coronavirus (COVID-19)(PCR) NEGATIVE, Influenza Type A (RT-PCR) NEGATIVE, Influenza Type B (RT-PCR) NEGATIVE, Respiratory Syncytial Virus (PCR) NEGATIVE 07/28/20 20:33: POC Glucose (Misc Panel) 91, POC Sodium (Misc Panel) 140, POC Potassium (Misc Panel) 4.1, POC Chloride (Misc Panel) 104, POC Total CO2 (Misc Panel) 25.0, POC Blood Urea Nitrogen (Misc Panel 8, POC Ionized Calcium (Misc Panel) 4.3L, POC Creatinine (Misc Panel) 0.7, POC Hematocrit (Misc Panel) 41.0 07/29/20 06:29: Immature Granulocyte % (Auto) 0.5, Neutrophils (%) (Auto) 63.8, Lymphocytes (%) (Auto) 21.2L, Monocytes (%) (Auto) 10.3H, Eosinophils (%) (Auto) 3.5H, Basophils (%) (Auto) 0.7, Neutrophils # (Auto) 3.8, Lymphocytes # (Auto) 1.3L, Monocytes # (Auto) 0.6, Eosinophils # (Auto) 0.2, Basophils # (Auto) 0.0, Nucleated Red Blood Cells % (auto) 0.0, Magnesium Level 2.1, C-Reactive Protein, Quantitative 2.22H CBC/BMP Laboratory Tests 07/28/20 15:01 07/29/20 06:29 Microbiology Microbiology 07/28/20 Blood Culture, Received Pending 07/28/20 Blood Culture, Received Pending 07/28/20 Gram Stain, Received Pending 07/28/20 Wound Culture, Received Pending Osei Ladd DO Jul 29, 2020 07:22
[2020-07-29 07:37] LABS: ERYTHROCYTE SEDIMENTATION RATE 10 mm/hr (0-20)
[2020-07-29] MEDS: ENOXAPARIN 40MG/0.4ML SYRINGE (J1650 PER 10MG) SC SCH (07:48)
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
[2020-07-29] MEDS ORDERED: BUPIVACAINE/EPIN 0.5% 30 ML VIAL As Ordered ONE (08:38)
[2020-07-29] MEDS ORDERED: INFLUENZA QUADRIVALENT PF VACCINE 0.5ML SYRINGE IM SCH (09:00)
[2020-07-29] MEDS ORDERED: lisinopriL 40 MG TAB PO SCH (09:00)
[2020-07-29] MEDS ORDERED: INFLUENZA QUADRIVALENT PF VACCINE 0.5ML SYRINGE IM ONE (09:00)
[2020-07-29] MEDS: DOCUSATE SODIUM 100MG CAPSULE PO SCH ×2 (09:40→21:00)
[2020-07-29] MEDS: NORCO, ANEXSIA 5/325MG TABLET (HYDROcodone/ACETAMINOPHEN) PO PRN ×2 (09:40→22:16)
[2020-07-29] MEDS: DULoxetine 30 MG CAP (CYMBALTA) PO SCH ×2 (09:40→22:15)
[2020-07-29 09:44] LABS: BLOOD UREA NITROGEN 8 MG/DL (7-18); CALCIUM LEVEL 7.8 MG/DL (8.5-10.1); CARBON DIOXIDE LEVEL 24 MEQ/L (21-32); CHLORIDE LEVEL 114 MEQ/L (98-107); CREATININE FOR GFR 0.39 MG/DL (0.55-1.30); GLOMERULAR FILTRATION RATE > 60.0 (>58); GLUCOSE, FASTING 99 MG/DL (70-100); POTASSIUM SERUM 4.1 MEQ/L (3.5-5.1); SODIUM LEVEL 143 MEQ/L (136-145)
[2020-07-29] MEDS ORDERED: dexameTHASONE 4 MG/ML 1ML VIAL (J1100 PER 1MG) As Ordered ONE (12:16)
[2020-07-29] MEDS ORDERED: fentaNYL 100 MCG/2 ML INJECTION (J3010) As Ordered ONE (12:16)
[2020-07-29] MEDS ORDERED: LIDOCAINE 2% 100MG/5ML SDV (FOR ANES.) As Ordered ONE (12:16)
[2020-07-29] MEDS ORDERED: MIDAZOLAM INJ 2MG/2ML VIAL (J2250 PER 1MG) As Ordered ONE (12:16)
[2020-07-29] MEDS ORDERED: propofoL 200 MG/20 ML VIAL As Ordered ONE ×2 (12:16→13:24)
[2020-07-29] MEDS ORDERED: ONDANSETRON 4MG/2ML VIAL As Ordered ONE (12:16)
[2020-07-29] MEDS ORDERED: KETOROLAC 60MG 2ML VIAL As Ordered ONE (13:06)
[2020-07-29] MEDS ORDERED: ONDANSETRON 4MG/2ML VIAL IV PRN (14:00)
[2020-07-29] MEDS ORDERED: oxyCODONE 5MG TAB PO PRN ×2 (14:00→14:35)
--- NOTE | 2020-07-29 14:38 | ROOPDOC ---
[facility] Report Of Operation Report of Operation DATE OF PROCEDURE: 07/29/20 PREPROCEDURE DIAGNOSES: Infected wound with osteomyelitis to the Right fifth toe and associated cellulitis POSTPROCEDURE DIAGNOSES: As above PROCEDURE: Amputation of right fifth toe. Irrigation and debridement with exploration of wound. Ring block with 0.5% Marcaine with epinephrine to the Right fifth toe. Orthotic culture of right fifth toe Specimen SURGEON: Ruben Orta MD ANESTHESIA: Conscious sedation with the ring block performed by the surgeon. ESTIMATED BLOOD LOSS: Approximately 15 mL. COMPLICATIONS: No known complications. REMARKS: Dirty wound infected case. PROCEDURE NOTE: The patient was seen in the preoperative area and a new consent form was filled out. The right lower extremity was marked. Oral the patient was doing well with no significant changes from last evening. She did still have some right-based hip pain radiating from her foot. DESCRIPTION OF PROCEDURE: The patient was brought to the operating room and conscious sedation was started after the patient's identity was confirmed. The patient's right lower extremity was cleansed with chlorhexidine brush followed by alcohol and hydrogen peroxide wipes. She then had a Betadine preparation and the right lower extremity to the mid leg level was prepped and draped in the normal sterile fashion. A surgical positive was then carried out. Once the surgical safety checklist was performed, the skin marker was utilized to demarcate the viable tissue around the right fifth toe, allowing for a flap of tissue for closure. The 0.5% Marcaine with epinephrine was then injected close to the bony structures of the right fifth toe providing a ring block. This was also carried deep to the region of the metatarsal head to help avoid any risk of neuroma. An Esmarch was used for the purposes of a tourniquet. The 10 blade was used to create a circumferential incision through the skin and subcutaneous tissue. Any bleeding vessels were cauterized with electrocautery. The distal phalanx and distal portion of the resorbed/destroyed proximal phalanx was debrided and excised. This was sent for cultures. The proximal remaining portion of the proximal phalanx was removed with the 10 blade. Additional local anesthetic was instilled into the wound locally. The metatarsal head was palpated and found to be not involved with the infectious process. Clear joint fluid was noted with debridement of this area. A Glendo was used to probe around the metatarsal head and the soft tissues. No tunneling or sinus tracts were detected. No purulence or otherwise was expressible. There did not appear to be any communication of the infection. The wound was irrigated with several 100 mL of normal sterile saline. Betadine was instilled into the wound and allowed to soak for a few minutes. This was then irrigated out with several 100 mL of normal sterile saline. The Esmarch tourniquet was taken down and any bleeders, which were minimal were cauterized with electrocautery. Closure then occurred. Utilizing a #1 PDS and a 2. 0 nylon. Full-thickness sutures were carried out with the PDS in a vertical mattress fashion. The 2. 0 nylon was then used to approximate the wound edges. After cleaning, and Adaptic dressing was applied to the wound edge. This was held in position with 4 x 4 dressing, followed by an AVD pad. 1. Under grafts, 4 x 4 gauze was placed between the toes of the fourth and third digit. This packing was held back and Kerlix was loosely wrapped around the foot and ankle to hold the dressing in position. A Coban dressing was then loosely wrapped over this to hold this dressing position as well. The patient tolerated the procedure well. There were no known complications. The patient's anesthetic was reversed. She was taken to the recovery room. The patient will be nonweightbearing with crutches. The dressing will stay in position for at least 3 days. It can be reinforced as needed. Once the dressing is taken down after 3 days a Telfa and Tegaderm dressing or Telfa [place] dr faith may be placed. The patient was advised that she may need to have her ankle, knee orthosis reevaluated by her coal getter. The cultures for the toe will be followed. The patient will remain on antibiotics as dictated by the hospitalist service. These can possibly be tailored based on the results of the culture. The patient will follow up with me at [facility] orthopedics in 2 weeks time for removal of sutures. RUBEN ORTA MD Jul 29, 2020 14:38
[2020-07-30 01:35] VITALS: BP 151/94
[2020-07-30] MEDS: AMPICILLIN SOD/SULBACTAM SOD 3 GM in D5W MINI-BAG PLUS 100 ML IV SCH ×2 (05:24→11:52)
[2020-07-30] MEDS: NORCO, ANEXSIA 5/325MG TABLET (HYDROcodone/ACETAMINOPHEN) PO PRN (05:24)
[2020-07-30 06:31] LABS: BASO % 0.2 % (0.0-1.0); EOS % 0.1 % (0.0-3.0); HEMATOCRIT 38.4 % (36.0-47.0); LYMPH # 1.6 10^3/uL (1.5-5.0); LYMPH % 18.8 % (24.0-44.0); MEAN CORPUSCULAR HEMOGLOBIN 31.6 pg (27.0-33.0); MEAN CORPUSCULAR HGB CONC 33.9 g/dl (32.0-36.5); MEAN CORPUSCULAR VOLUME 93.2 fl (80.0-96.0); MONO # 0.5 10^3/uL (0.0-0.8); MONO % 6.1 % (2.0-8.0); NEUTROPHILS # 6.5 10^3/uL (1.5-8.5); NEUTROPHILS % 74.2 % (36.0-66.0); PLATELET COUNT, AUTOMATED 133 10^3/uL (150-450); RED BLOOD COUNT 4.12 10^6/uL (4.00-5.40); WHITE BLOOD COUNT 8.7 10^3/uL (4.0-10.0)
[2020-07-30 06:33] VITALS: BP 156/96
[2020-07-30 06:53] LABS: BLOOD UREA NITROGEN 9 MG/DL (7-18); C REACTIVE PROTEIN QUANTITATIV 1.51 MG/DL (0.00-0.30); CALCIUM LEVEL 7.9 MG/DL (8.5-10.1); CARBON DIOXIDE LEVEL 24 MEQ/L (21-32); CHLORIDE LEVEL 113 MEQ/L (98-107); CREATININE FOR GFR 0.37 MG/DL (0.55-1.30); GLOMERULAR FILTRATION RATE > 60.0 (>58); GLUCOSE, FASTING 98 MG/DL (70-100); MAGNESIUM LEVEL 1.8 MG/DL (1.8-2.4); POTASSIUM SERUM 3.8 MEQ/L (3.5-5.1); SODIUM LEVEL 142 MEQ/L (136-145)
[2020-07-30 07:16] LABS: ERYTHROCYTE SEDIMENTATION RATE 12 mm/hr (0-20)
[2020-07-30] MEDS: DOCUSATE SODIUM 100MG CAPSULE PO SCH (08:39)
[2020-07-30] MEDS: DULoxetine 30 MG CAP (CYMBALTA) PO SCH (08:39)
[2020-07-30] MEDS: ENOXAPARIN 40MG/0.4ML SYRINGE (J1650 PER 10MG) SC SCH (08:39)
--- NOTE | 2020-07-30 08:50 | IPNPDOC ---
Text Note Date of Service The patient was seen on 07/30/20. NOTE The patient is seen postop day 1 for amputation of right fifth toe secondary to osteomyelitis with associated cellulitis. The patient is doing quite well. She is not having any significant complaints or concerns. She states that the pain is improving and the redness in her foot has gone down. She denies any chest pain or shortness of breath or any other significant complaints. She feels that she would like to be discharged home today. Examination of the right foot does not demonstrate any significant staining of the dressing. The dressing is in place. Capillary refill to the exposed toes demonstrated Refill less than 3 seconds. The patient does have impaired sensatio n globally throughout her foot as a result of her previous issues with the right lower extremity. She is able to move the toes minimally, which was the case preoperatively. The Gram stain from yesterday's procedure has come back negative and cultures are still pending. I spoken with the hospitalist. The plan will be to discharge home today on Augmentin and Bactrim. Empiric antibiotic therapy. I will see her for follow-up in 2 weeks in the office to remove the sutures. The bulky dressing with the patient currently has an placed to the right foot can stay on until Sunday. On Sunday. This bulky dressing can be removed and a Telfa and Tegaderm or [place] dressing can be sealed around the wound. The patient was advised to contact her primary care within the next week or so to be reassessed after hospital admission. I have also advised her to follow-up with her manager plan in a few weeks to reassess her ankle, knee, foot orthosis and if any adjustments need to be made. She is able to mobilize with crutches. She can heel weight-bear as tolerated. If she is unable to heel weight-bear alone and there is contact between the ground and her operative forefoot that I wouldn't advise her to be nonweightbearing with the crutches until she is reassessed in 2 weeks. VS,Fishbone, I+O VS, Fishbone, I+O Laboratory Tests 07/30/20 05:35 Vital Signs Date Time Temp Pulse Resp B/P (MAP) Pulse Ox O2 Delivery O2 Flow Rate FiO2 07/30/20 06:33 97.7 90 15 156/96 (116) 99 Room Air 07/29/20 13:41 2 I&O- Last 24 Hours up to 6 AM 07/30/20 05:59 Intake Total 4510 ml Output Total 10 ml Balance 4500 ml GRACIE ORTA MD Jul 30, 2020 08:50
[2020-07-30 10:00] VITALS: BP 140/81
[2020-07-30] MEDS ORDERED: OXYC10TA3 PO (13:06)
[2020-07-30] MEDS ORDERED: ACET1TAB55 PO (13:06)
[2020-07-30] MEDS ORDERED: AMOX875T2 PO (13:10)
[2020-07-30] MEDS ORDERED: DOXY-350 PO (13:10)
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
== END 2020-07-30 15:40 | disposition home health service (06) | DRG 504 ==
LOC: M ED 13:32 → M ED INP 17:04 → ENRESERV 18:52 → M MS5PR 21:00
PROVIDERS: ADMIT Family Medicine; ATTEND Family Medicine
PROC: 0Y6X0Z0 Detachment at Right 5th Toe, Complete, Open Approach (ICD-10-PCS; principal; 2020-07-29 12:30)
DX: M86.171 Other acute osteomyelitis, right ankle and foot (principal); L97.919 Non-pressure chronic ulcer of unspecified part of right lower leg with unspecified severity; L03.115 Cellulitis of right lower limb; G83.11 Monoplegia of lower limb affecting right dominant side; E87.5 Hyperkalemia; I10 Essential (primary) hypertension; Z79.899 Other long term (current) drug therapy; Z88.2 Allergy status to sulfonamides; Z88.8 Allergy status to other drugs, medicaments and biological substances; F32.9 Major depressive disorder, single episode, unspecified

== ENCOUNTER → 2020-08-13 | Outpatient (CLI) | payer MEDICARE, OTHER ==
[~2020-08-13] MED LIST changes: +AMOX875T2 PO; +CHAN1PAK11 PO; +DOXY-350 PO; +OXYC10TA3 PO
--- NOTE | 2020-08-13 10:00 | REP ---
INDICATION: AMPUTATION. COMPARISON: MRI and x-ray right foot 07/28/2020. TECHNIQUE: Three views. FINDINGS: There has been interval amputation of the 5th toe. Diffuse soft tissue swelling but much less on the current study compared to 07/28/2020. Been previous the partial amputation distal phalanx great toe versus resorption. Bones are otherwise unchanged. No new bony findings. Chronic degenerative changes at the 1st MTP joint, some of the IP joints and tarsal bones in the midfoot. Degenerative changes at the ankle and hindfoot also noted. No acute fractures. No new bony destructive changes. I do not see subcutaneous emphysema. IMPRESSION: 1. Status post amputation 5th toe with no new bony destructive lesions. Chronic changes as before. Less soft tissue swelling compared to the preoperative images but still some diffuse swelling in the foot and ankle region. <Electronically signed by Cody Noe > 08/13/20 [id number]
== END ==
LOC: M SOG 08:56
PROVIDERS: ATTEND Family Medicine
DX: M19.071 Primary osteoarthritis, right ankle and foot (principal); Z89.421 Acquired absence of other right toe(s)

== ENCOUNTER 2020-10-21 13:34 | Emergency (ER) | payer MEDICARE, OTHER ==
[~2020-10-21] VITALS: Ht 165.1 cm; Wt 72.9 kg
[2020-10-21 14:40] LABS: BASO # 0.1 10^3/uL (0.0-0.2); BASO % 0.5 % (0.0-1.0); EOS # 0.2 10^3/uL (0.0-0.5); EOS % 1.9 % (0.0-3.0); HEMATOCRIT 45.4 % (36.0-47.0); HEMOGLOBIN 15.4 g/dl (12.0-15.5); LYMPH # 2.7 10^3/uL (1.5-5.0); LYMPH % 23.5 % (24.0-44.0); MEAN CORPUSCULAR HGB CONC 33.9 g/dl (32.0-36.5); MEAN CORPUSCULAR VOLUME 94.2 fl (80.0-96.0); MONO # 0.6 10^3/uL (0.0-0.8); MONO % 5.7 % (2.0-8.0); NEUTROPHILS # 7.7 10^3/uL (1.5-8.5); NEUTROPHILS % 67.9 % (36.0-66.0); PLATELET COUNT, AUTOMATED 176 10^3/uL (150-450); RED BLOOD COUNT 4.82 10^6/uL (4.00-5.40); WHITE BLOOD COUNT 11.3 10^3/uL (4.0-10.0)
--- NOTE | 2020-10-21 14:48 | REP ---
INDICATION: r/o dvt. COMPARISON: None. TECHNIQUE: Multiple ultrasonographic images of the deep venous structures of the bilateral lower extremity were obtained from the inguinal ligament to the ankle. Venous compression techniques, color doppler imaging, and augmentation techniques were also obtained where appropriate. As per the ACR guidelines the anterior tibial vein can not be effectively evaluated. Only compression techniques in the calf on the peroneal and posterior tibial veins was attempted/performed. FINDINGS: There is no abnormal echogenic material seen within any of the visualized deep venous structures that would suggest acute thrombosis. Coaptation is unremarkable throughout. Doppler interrogation shows an expected response to respiratory variability and augmentation in the thigh. Compression techniques in the calf showed no abnormality. The color flow images show what appears to be a normal vascular pattern throughout the thigh. IMPRESSION: There is no ultrasonographic evidence of deep venous thrombosis involving any of the visualized deep venous structures of the bilateral lower extremity as described above. <Electronically signed by Son Amin > 10/21/20 [id number]
[2020-10-21 15:04] LABS: ALBUMIN 3.3 GM/DL (3.2-5.2); ALT/SGPT 19 U/L (12-78); BILIRUBIN,TOTAL 0.2 MG/DL (0.2-1.0); BLOOD UREA NITROGEN 11 MG/DL (7-18); CALCIUM LEVEL 8.3 MG/DL (8.5-10.1); CARBON DIOXIDE LEVEL 24 MEQ/L (21-32); CHLORIDE LEVEL 109 MEQ/L (98-107); CREATININE FOR GFR 0.64 MG/DL (0.55-1.30); GLOMERULAR FILTRATION RATE > 60.0 (>58); GLUCOSE, FASTING 107 MG/DL (70-100); POTASSIUM SERUM 3.8 MEQ/L (3.5-5.1); SODIUM LEVEL 141 MEQ/L (136-145); TOTAL PROTEIN 6.2 GM/DL (6.4-8.2)
[2020-10-21 15:15] VITALS: BP 127/72
== END 2020-10-21 15:20 | disposition home or self-care (01) ==
LOC: M ED 13:34
DX: L81.4 Other melanin hyperpigmentation (principal); Z87.01 Personal history of pneumonia (recurrent); Z87.440 Personal history of urinary (tract) infections; M54.30 Sciatica, unspecified side; E55.9 Vitamin D deficiency, unspecified; F41.9 Anxiety disorder, unspecified; F32.9 Major depressive disorder, single episode, unspecified; Z86.14 Personal history of Methicillin resistant Staphylococcus aureus infection; Z22.39 Carrier of other specified bacterial diseases; F17.200 Nicotine dependence, unspecified, uncomplicated; Z79.899 Other long term (current) drug therapy; Z88.8 Allergy status to other drugs, medicaments and biological substances; Z88.2 Allergy status to sulfonamides

== ENCOUNTER → 2021-02-17 | Outpatient (REF) | payer MEDICARE, OTHER | LOC: M LAB REF 21:40 | PROVIDERS: ATTEND Physician Assistant | DX: N39.0 Urinary tract infection, site not specified (principal) ==

== ENCOUNTER 2022-01-16 11:05 | Emergency (ER) | payer MEDICARE, OTHER ==
[~2022-01-16] VITALS: Ht 165.1 cm; Wt 74.5 kg
[~2022-01-16 11:05] MED LIST changes: -CYMB60CA3 PO; +CYMB60CA4 PO
[2022-01-16] MEDS ORDERED: MORP-69 (11:21)
[2022-01-16] MEDS ORDERED: DRON5CAP13 (11:21)
[2022-01-16] MEDS ORDERED: POLYSOL OP (12:55)
[2022-01-16] MEDS ORDERED: DOXY-443 PO (12:55)
[2022-01-16 13:01] VITALS: BP 165/87
== END 2022-01-16 13:02 | disposition home or self-care (01) ==
LOC: M ED 11:05
DX: H01.002 Unspecified blepharitis right lower eyelid (principal); H10.31 Unspecified acute conjunctivitis, right eye; G89.29 Other chronic pain; F17.200 Nicotine dependence, unspecified, uncomplicated; Z88.2 Allergy status to sulfonamides; Z88.8 Allergy status to other drugs, medicaments and biological substances; Z79.899 Other long term (current) drug therapy; Z79.891 Long term (current) use of opiate analgesic

== ENCOUNTER → 2022-01-25 | Outpatient (REF) ==
[~2022-01-25] MED LIST changes: +DOXY-443 PO; +DRON5CAP13; +MORP-69; +POLYSOL OP
== END ==
LOC: M PLAIMG 12:42
PROVIDERS: ATTEND Internal Medicine
DX: M25.551 Pain in right hip (principal)

== ENCOUNTER 2024-06-05 10:00 | Outpatient (RCR) | payer MEDICARE, OTHER ==
[~2024-06-05 10:00] MED LIST changes: -ALIG4CAP PO; +ALIG4CAP3 PO; -DOXY-350 PO; +DOXY-440 PO; +DOXY-441 PO; -DOXY-443 PO; -OXYC-404 PO; +OXYC20TA64 PO
[2024-06-12] MEDS ORDERED: ZOLO100T (14:13)
[2024-06-12] MEDS ORDERED: ROSU20TA86 (14:13)
[2024-06-12] MEDS ORDERED: AMLO1TAB24 (14:16)
== END 2024-06-13 ==
LOC: M PT 10:00
PROVIDERS: ATTEND Physician Assistant
DX: M25.552 Pain in left hip (principal)

== ENCOUNTER → 2024-06-19 | Outpatient (CLI) | payer MEDICARE, OTHER ==
[~2024-06-19] MED LIST changes: +AMLO1TAB24; +ROSU20TA86; +ZOLO100T
== END ==
LOC: M WHC 09:34
PROVIDERS: ATTEND Specialist
DX: Z12.31 Encounter for screening mammogram for malignant neoplasm of breast (principal); R92.333 Mammographic heterogeneous density, bilateral breasts

== ENCOUNTER → 2024-07-10 | Outpatient (CLI) | payer MEDICARE, OTHER | LOC: M WHC 09:40 | PROVIDERS: ATTEND Specialist | DX: R92.8 Other abnormal and inconclusive findings on diagnostic imaging of breast (principal); N60.11 Diffuse cystic mastopathy of right breast; N60.12 Diffuse cystic mastopathy of left breast | CPT/HCPCS: 76641; 77066; G0279 ==

== ENCOUNTER → 2025-04-24 | Outpatient (REF) | payer MEDICARE, OTHER ==
[~2025-04-24] MED LIST changes: +AMLO2.5T3 PO; -DRON5CAP13; +DRON5CAP19; +FLON1SPR; +LISI40TA10 PO; -LISI40TA4 PO; -OXYC20TA64 PO; +OXYC20TA66 PO; +VITA100093 PO; -ZOLO100T; +ZOLO100T PO
== END ==
LOC: M SFHCRHEU 10:39
PROVIDERS: ATTEND Internal Medicine
DX: M25.40 Effusion, unspecified joint (principal)